=== PATIENT | male | born 1970 | race African-American/Black ===

== ENCOUNTER 2017-01-30 12:19 | Emergency (ER) | payer OTHER ==
[~2017-01-30] VITALS: Ht 180.3 cm; Wt 70.4 kg
[2017-01-30 17:10] VITALS: BP 144/93
== END 2017-01-30 17:10 | disposition home or self-care (01) ==
LOC: ED 12:19
DX: S29.011A Strain of muscle and tendon of front wall of thorax, initial encounter (principal); S21.101A Unspecified open wound of right front wall of thorax without penetration into thoracic cavity, initial encounter; J45.909 Unspecified asthma, uncomplicated; Z88.8 Allergy status to other drugs, medicaments and biological substances; W50.0XXA Accidental hit or strike by another person, initial encounter; Y93.72 Activity, wrestling; Y92.89 Other specified places as the place of occurrence of the external cause; Y99.8 Other external cause status
CPT/HCPCS: J1885

== ENCOUNTER 2017-05-30 00:11 | Emergency (ER) | payer OTHER ==
[~2017-05-30] VITALS: Ht 180.3 cm; Wt 69.8 kg
[2017-05-30 00:28] VITALS: BP 144/91
== END 2017-05-30 00:50 | disposition home or self-care (01) ==
LOC: ED 00:11
DX: L03.031 Cellulitis of right toe (principal); J45.909 Unspecified asthma, uncomplicated; Z88.8 Allergy status to other drugs, medicaments and biological substances; Z88.6 Allergy status to analgesic agent

== ENCOUNTER 2019-10-10 21:53 | Emergency (ER) | payer OTHER ==
[~2019-10-10] VITALS: Ht 180.3 cm; Wt 72.8 kg
[2019-10-10 22:10] VITALS: BP 114/84; Ht 180.3 cm; Wt 72.8 kg
== END 2019-10-10 22:45 | disposition home or self-care (01) ==
LOC: ED 21:53
DX: S80.861A Insect bite (nonvenomous), right lower leg, initial encounter (principal); B35.3 Tinea pedis; J45.909 Unspecified asthma, uncomplicated; Z88.8 Allergy status to other drugs, medicaments and biological substances; Z88.6 Allergy status to analgesic agent; Z98.890 Other specified postprocedural states; W57.XXXA Bitten or stung by nonvenomous insect and other nonvenomous arthropods, initial encounter; Y93.89 Activity, other specified; Y92.89 Other specified places as the place of occurrence of the external cause; Y99.8 Other external cause status

== ENCOUNTER 2020-09-27 18:35 | Emergency (ER) | payer OTHER ==
[~2020-09-27] VITALS: Ht 180.3 cm; Wt 73.0 kg
[2020-09-27 18:45] VITALS: BP 124/85; Ht 180.3 cm; Wt 73.0 kg
== END 2020-09-27 20:02 | disposition home or self-care (01) ==
LOC: ED 18:35
DX: S60.362A Insect bite (nonvenomous) of left thumb, initial encounter (principal); J45.909 Unspecified asthma, uncomplicated; Z98.890 Other specified postprocedural states; Z88.6 Allergy status to analgesic agent; Z88.8 Allergy status to other drugs, medicaments and biological substances; W57.XXXA Bitten or stung by nonvenomous insect and other nonvenomous arthropods, initial encounter; Y93.89 Activity, other specified; Y92.89 Other specified places as the place of occurrence of the external cause; Y99.8 Other external cause status
CPT/HCPCS: 90715; J1885